=== PATIENT | female | born 1970 | race Caucasian/White ===

== ENCOUNTER → 2016-10-20 | Outpatient (CLI) | payer OTHER ==
--- NOTE | 2016-10-20 14:51 | RAD ---
DATE: 10/20/2016 EXAM: DIGITAL DIAGNOSTIC BILATERAL HISTORY: 46-year-old female presents for evaluation of left breast lump at 7:00 that her doctor felt. COMPARISON: Previous mammogram from 2014. This study was interpreted with the benefit of Computerized Aided Detection (CAD). FINDINGS: Breast Density: HETERO The breast parenchyma Is heterogeneiously dense, which could reduce sensitivity of mammography. Breast parenchyma level C. No suspicious calcifications, spiculated mass or areas of architectural distortion. IMPRESSION: No mammographic evidence of malignancy. However, since patient's doctor felt a lump, targeted ultrasound of the left breast was performed. BI-RADS CATEGORY: 0 INCOMPLETE: NEED ADDITIONAL IMAGING EVAULATION AND/OR PRIOR MAMMOGRAMS FOR COMPARISON RECOMMENDED FOLLOW-UP: ADD ADDITIONAL IMAGING Left breast ultrasound: Targeted left ultrasound demonstrated no suspicious solid or cystic mass. Impression: No evidence of malignancy. If palpable abnormality persists, repeat targeted ultrasound in 6 months recommended. BI-RADS 1: Negative. PQRS compliance statement: Patient information was entered into a reminder system with a target due date 10/20/2017 for the next mammogram. Mammography is a sensitive method for finding small breast cancers, but it does not detect them all and is not a substitute for careful clinical examination. A negative mammogram does not negate a clinically suspicious finding and should not result in delay in biopsying a clinically suspicious abnormality. "Our facility is accredited by the [employer] Mammography [employer]."
--- NOTE | 2016-10-20 16:27 | RAD ---
Ultrasound of the left breast Indication: Palpable abnormality in the left breast at 7:00. Technique: Targeted ultrasound of the left breast in the region of palpable abnormality. Patient was called back on the same day for additional views to clarify abnormality seen on the earlier image. Comparison: Mammogram from the same day Findings: There is an ill-defined hypoechoic lesion with indistinct borders at 6:00 position with no posterior shadowing. Repeat ultrasound in this region demonstrated no abnormality. Thorough search was performed with real time scanning to find this area of abnormality. Impression: No sonographic findings to suggest malignancy. Abnormality seen on one image is not seen on subsequent images taken in the same region. BI-RADS 3: Probably benign. Repeat ultrasound in the region of palpable abnormality is recommended in 6 months.
== END | disposition home or self-care (01) ==
LOC: MAMMO 13:22
PROVIDERS: ATTEND Nurse Practitioner Family
DX: N63 Unspecified lump in breast (principal); N64.89 Other specified disorders of breast
CPT/HCPCS: 76641; G0204; 77066

== ENCOUNTER → 2017-09-07 | Outpatient (CLI) | payer OTHER ==
--- NOTE | 2017-09-07 09:51 | RAD ---
Left breast ultrasound, 09/07/2017: HISTORY: Follow-up palpable abnormality Comparison is made to a study from 10/20/2016. A targeted ultrasound exam of the left breast was performed at the 6-7:00 location, in the area of previous palpable concern. Heterogeneous fibroglandular shadows are present. Again, no discrete breast mass is identified. IMPRESSION: Continued negative targeted left breast ultrasound. Routine bilateral mammography at the anniversary of the patient's 10/20/2016 exam is suggested. BI-RADS 1-negative Electronically signed by: Vadim De La Paz MD (09/07/2017 9:48 AM) [facility]
== END | disposition home or self-care (01) ==
LOC: US 08:54
PROVIDERS: ATTEND Nurse Practitioner Family
DX: R92.8 Other abnormal and inconclusive findings on diagnostic imaging of breast (principal)
CPT/HCPCS: 76641